=== PATIENT | female | born 1960 | race Two or more races ===

== ENCOUNTER → 2021-02-23 08:17 | Outpatient (BNVA) | payer OTHER, SELFPAY | PROVIDERS: PCP Internal Medicine; Visit Provider Student in an Organized Health Care Education/Training Program | DX: M79.672 Pain in left foot (principal); F17.200 Nicotine dependence, unspecified, uncomplicated; Z79.899 Other long term (current) drug therapy; Z71.6 Tobacco abuse counseling | CPT/HCPCS: 99212 ==

== ENCOUNTER 2021-07-05 07:55 | Outpatient (REF) | payer OTHER, SELFPAY ==
[2021-07-05 09:40] LABS: Alanine Aminotransferase 12 U/L (0-31); Albumin Level 4.1 g/dL (3.5-5.0); Alkaline Phosphatase 127 U/L (39-117); Anion Gap 14 (12-20); Aspartate Amino Transferase 14 U/L (5-31); Bilirubin Total 0.6 mg/dL (0.0-1.0); Blood Urea Nitrogen 25 mg/dL (9-16); Calcium 10.2 mg/dL (8.4-10.2); Carbon Dioxide 24 mmol/L (22-29); Chloride 106 mmol/L (96-108); Estimated Glomerular Filt Rate 51; Glucose Random 116 mg/dL (60-115); Potassium 4.5 mmol/L (3.3-5.1); Sodium 139 mmol/L (135-145); Total Protein 6.8 g/dL (6.5-8.0)
== END 2021-07-05 07:56 | disposition home or self-care (01) ==
LOC: HO.LAB 07:55
PROVIDERS: PCP Internal Medicine; Visit Provider Nurse Practitioner Family
DX: M79.672 Pain in left foot (principal)
CPT/HCPCS: 36415; 80053

== ENCOUNTER 2021-07-19 08:07 | Outpatient (REF) | payer OTHER, SELFPAY ==
--- NOTE | ~2021-07-19 | US_ITS ---
EXAMINATION: US ABDOMEN COMPLETE CLINICAL INFORMATION: Right upper quadrant pain, rule out cholecystitis. COMPARISON: Abdominal ultrasound 07/30/2017 TECHNIQUE: Real-time imaging of the abdominal viscera. Exam is limited due to pain and limited patient mobility. FINDINGS: PANCREAS: Normal. ABDOMINAL AORTA: The abdominal aorta is normal in caliber. INFERIOR VENA CAVA: Visualized portions are normal. LIVER: The liver is normal in size. The liver contour is normal. Parenchymal echogenicity is slightly increased. No focal hepatic lesion. There is no intrahepatic biliary duct dilatation seen. GALLBLADDER: Normal. The gallbladder is physiologically distended without evidence of stones, sludge, polyps, wall thickening or pericholecystic fluid. COMMON BILE DUCT: Normal in caliber measuring 0.4 cm in diameter. RIGHT KIDNEY: Normal. No hydronephrosis. No renal calculi or focal parenchymal lesions. The kidney measures 11.0 cm in maximum dimension. LEFT KIDNEY: Normal. No hydronephrosis. No renal calculi or focal parenchymal lesions. The kidney measures 10.4 cm in maximum dimension. SPLEEN: Normal. The spleen measures 8.9 cm in maximum dimension. FREE FLUID: None. US/US abdomen complete IMPRESSION: Limited exam. Slightly echogenic liver. Normal-appearing gallbladder.
[2021-07-19 08:58] LABS: MANUAL DIFF FLAG NO
[2021-07-19 09:23] LABS: Basophils Percent Auto 0.3 % (0-2); Eosinophils Absolute Auto 0.1 X10*3/uL (0.0-0.4); Eosinophils Percent Auto 0.8 % (0-4); Hematocrit 44.2 % (37-47); Hemoglobin 14.7 g/dl (12.0-16.0); Imm Gran Abs Auto 0.04 X10*3/uL (0.00-0.03); Imm Gran Pct Auto 0.4 % (0.0-0.4); Lymphocytes Absolute Auto 4.3 X10*3/uL (1.2-4.9); Lymphocytes Percent Auto 39.2 % (20-40); Mean Corpuscular HGB Conc 33.3 g/dl (31.0-35.0); Mean Corpuscular Volume 93.2 fL (80-98); Monocytes Absolute Auto 0.6 X10*3/uL (0.1-1.2); Monocytes Percent Auto 5.2 % (2-11); Neutrophils Absolute Auto 5.9 X10*3/uL (2.0-8.3); Neutrophils Percent Auto 54.1 % (45-73); Platelet Count 427 X10*3/uL (160-400); Red Blood Count 4.74 X10*6/uL (4.20-5.50); Red Cell Distribution Width 13.2 % (11.0-16.0); White Blood Count 10.8 X10*3/uL (4.8-10.8)
[2021-07-19 09:36] LABS: Estimated Average Glucose 120 mg/dL; Hemoglobin A1c % 5.8 %
[2021-07-19 09:48] LABS: Alanine Aminotransferase 10 U/L (0-31); Albumin Level 4.4 g/dL (3.5-5.0); Alkaline Phosphatase 136 U/L (39-117); Anion Gap 14 (12-20); Aspartate Amino Transferase 13 U/L (5-31); Bilirubin Total 0.5 mg/dL (0.0-1.0); Blood Urea Nitrogen 31 mg/dL (9-16); Calcium 9.3 mg/dL (8.4-10.2); Carbon Dioxide 24 mmol/L (22-29); Chloride 106 mmol/L (96-108); Cholesterol 262 mg/dL; Estimated Glomerular Filt Rate 46; Glucose Random 97 mg/dL (60-115); HDL Cholesterol 44 mg/dL; LDL Cholesterol Calculated 188 mg/dl; Potassium 4.7 mmol/L (3.3-5.1); Sodium 139 mmol/L (135-145); Total Protein 7.2 g/dL (6.5-8.0); Triglycerides 151 mg/dL
[2021-07-19 10:47] LABS: Creatinine Urine 168.51 mg/dL; Microalbum/Creatinine Ratio Ur 5.3 ug/mg cr
== END 2021-07-19 08:08 | disposition home or self-care (01) ==
LOC: HO.US 08:07
PROVIDERS: PCP Internal Medicine; Visit Provider Internal Medicine
DX: E11.9 Type 2 diabetes mellitus without complications (principal); E78.00 Pure hypercholesterolemia, unspecified; I10 Essential (primary) hypertension; R10.11 Right upper quadrant pain
CPT/HCPCS: 36415; 76700; 80053; 80061; 82043; 83036; 85025

== ENCOUNTER → 2022-02-23 07:56 | Outpatient (BNVA) | payer OTHER, SELFPAY | PROVIDERS: PCP Internal Medicine; Visit Provider Nurse Practitioner Family | DX: M25.562 Pain in left knee (principal); M47.816 Spondylosis without myelopathy or radiculopathy, lumbar region; M79.672 Pain in left foot; M79.7 Fibromyalgia | CPT/HCPCS: 99212 ==

== ENCOUNTER 2022-02-28 06:16 | Outpatient (REF) | payer OTHER, SELFPAY ==
--- NOTE | ~2022-02-28 | XR_ITS ---
EXAMINATION: XR LUMBOSACRAL SPINE CLINICAL INFORMATION: Low back pain COMPARISON: Previous x-rays most recent February 2015 TECHNIQUE: Three views of the lumbosacral spine. FINDINGS: There is transitional anatomy with 4 nonrib-bearing lumbar-type vertebral bodies and sacralization of L5. Bone alignment is normal. No fracture or dislocation is seen. Disc spaces are normal. There is degenerative spondylosis of the lower thoracic spine. There is lower lumbar spine facet arthritis. XR/XR lumbar spine 2-3V IMPRESSION: Transitional anatomy at the lumbar sacral junction. Lower lumbar spine facet arthritis.
--- NOTE | ~2022-02-28 | XR_ITS ---
EXAMINATION: XR FOOT, LEFT CLINICAL INFORMATION: Pain COMPARISON: None TECHNIQUE: AP, lateral, and oblique views of the left foot. FINDINGS: Bone alignment is normal. No fracture or dislocation is seen. Joint spaces are normal. There are calcaneal spurs. XR/XR foot LT 2V IMPRESSION: Calcaneal spurs otherwise unremarkable exam.
== END 2022-02-28 06:17 | disposition home or self-care (01) ==
LOC: HO.XRAY 06:16
PROVIDERS: PCP Internal Medicine; Visit Provider Nurse Practitioner Family
DX: M54.50 Low back pain, unspecified (principal); M79.672 Pain in left foot
CPT/HCPCS: 72100; 73620

== ENCOUNTER 2022-06-21 07:07 | Outpatient (REF) | payer OTHER, SELFPAY ==
[2022-06-21 07:23] LABS: MANUAL DIFF FLAG NO
[2022-06-21 07:39] LABS: Basophils Percent Auto 0.3 % (0-2); Eosinophils Absolute Auto 0.1 X10*3/uL (0.0-0.4); Eosinophils Percent Auto 1.5 % (0-4); Hematocrit 43.6 % (37.0-47.0); Hemoglobin 14.3 g/dl (12.0-16.0); Imm Gran Abs Auto 0.02 X10*3/uL (0.00-0.03); Imm Gran Pct Auto 0.2 % (0.0-0.4); Lymphocytes Absolute Auto 4.8 X10*3/uL (1.2-4.9); Lymphocytes Percent Auto 53.3 % (20-40); Mean Corpuscular HGB Conc 32.8 g/dl (31.0-35.0); Mean Corpuscular Hemoglobin 30.3 pg (27.0-33.0); Mean Corpuscular Volume 92.4 fL (80.0-98.0); Mean Platelet Volume 8.6 fL (9.4-12.3); Monocytes Absolute Auto 0.6 X10*3/uL (0.1-1.2); Monocytes Percent Auto 6.5 % (2-11); Neutrophils Absolute Auto 3.4 x10*3/uL (2.0-8.3); Neutrophils Percent Auto 38.2 % (45-73); Platelet Count 360 X10*3/uL (160-400); Red Blood Count 4.72 X10*6/uL (4.20-5.50); Red Cell Distribution Width 13.7 % (11.0-16.0); White Blood Count 8.9 X10*3/uL (4.8-10.8)
[2022-06-21 07:45] LABS: Estimated Average Glucose 117 mg/dL; Hemoglobin A1c % 5.7 %
[2022-06-21 08:02] LABS: Alanine Aminotransferase 11 U/L (0-31); Albumin Level 4.2 g/dL (3.5-5.0); Alkaline Phosphatase 114 U/L (39-117); Anion Gap 14 (12-20); Aspartate Amino Transferase 12 U/L (5-31); Bilirubin Total 0.6 mg/dL (0.0-1.0); Blood Urea Nitrogen 29 mg/dL (9-16); Calcium 9.6 mg/dL (8.4-10.2); Carbon Dioxide 23 mmol/L (22-29); Chloride 106 mmol/L (96-108); Cholesterol 287 mg/dL; Estimated Glomerular Filt Rate 47; Glucose Random 107 mg/dL (60-115); HDL Cholesterol 47 mg/dL; LDL Cholesterol Calculated 193 mg/dl; Potassium 4.4 mmol/L (3.3-5.1); Sodium 139 mmol/L (135-145); Total Protein 6.9 g/dL (6.5-8.0); Triglycerides 235 mg/dL
[2022-06-21 08:22] LABS: Thyroid Stimulating Hormone 1.81 uIU/mL (0.32-4.0)
[2022-06-21 08:27] LABS: Creatinine Urine 52.73 mg/dL; Microalbumin Urine < 5.0 mg/L
[2022-06-21 09:13] LABS: Vitamin B12 201 pg/mL (200-900)
== END 2022-06-21 07:08 | disposition home or self-care (01) ==
LOC: HO.LAB 07:07
PROVIDERS: PCP Internal Medicine; Visit Provider Internal Medicine
DX: Z00.01 Encounter for general adult medical examination with abnormal findings (principal); I10 Essential (primary) hypertension; E78.00 Pure hypercholesterolemia, unspecified; E11.9 Type 2 diabetes mellitus without complications
CPT/HCPCS: 36415; 80053; 80061; 82043; 82607; 83036; 84443; 85025

== ENCOUNTER → 2022-09-08 07:36 | Outpatient (BNVA) | payer OTHER, SELFPAY | PROVIDERS: PCP Internal Medicine; Visit Provider Nurse Practitioner Family | DX: M25.511 Pain in right shoulder (principal); M25.521 Pain in right elbow; M79.672 Pain in left foot; M47.816 Spondylosis without myelopathy or radiculopathy, lumbar region; M79.7 Fibromyalgia; M25.562 Pain in left knee | CPT/HCPCS: 99212 ==

== ENCOUNTER 2022-10-02 09:27 | Outpatient (REF) | payer OTHER, SELFPAY ==
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
--- NOTE | ~2022-10-02 | XR_ITS ---
EXAMINATION: XR ELBOW, RIGHT CLINICAL INFORMATION: Right elbow pain. COMPARISON: None TECHNIQUE: AP, lateral, and oblique views of the right elbow. FINDINGS: The bones and soft tissues are normal. No fracture or joint effusion. Alignment is anatomic. Joint spaces are maintained. XR/XR elbow RT 2V IMPRESSION: Unremarkable right elbow.
== END 2022-10-02 09:28 | disposition home or self-care (01) ==
LOC: HO.XRAY 09:27
PROVIDERS: PCP Internal Medicine; Visit Provider Nurse Practitioner Family
DX: M25.521 Pain in right elbow (principal); M25.511 Pain in right shoulder
CPT/HCPCS: 73030; 73070

== ENCOUNTER 2022-10-02 09:49 | Emergency (ER) | payer OTHER, SELFPAY ==
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
[2022-10-02 09:51] VITALS: BP 128/73; PULSE 72; RESP 18; TEMP 36.6; O2SAT 98; BMI 36.2
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
== END 2022-10-02 12:25 | disposition home or self-care (01) ==
PROVIDERS: Emergency Provider Student in an Organized Health Care Education/Training Program; PCP Internal Medicine
DX: Z04.1 Encounter for examination and observation following transport accident (principal); R51.9 Headache, unspecified; M25.512 Pain in left shoulder
CPT/HCPCS: 70450; 72125; 73030; 99282; 99284

== ENCOUNTER 2022-12-18 06:18 | Outpatient (REF) | payer OTHER, SELFPAY ==
[2022-12-18 08:01] LABS: Hematocrit 39.7 % (37.0-47.0); Hemoglobin 13.1 g/dl (12.0-16.0); Mean Corpuscular Volume 94.1 fL (80.0-98.0); Mean Platelet Volume 9.3 fL (9.4-12.3); Platelet Count 330 X10*3/uL (160-400); Red Blood Count 4.22 X10*6/uL (4.20-5.50); Red Cell Distribution Width 13.1 % (11.0-16.0)
[2022-12-18 08:30] LABS: Alanine Aminotransferase 13 U/L (0-31); Albumin Level 3.8 g/dL (3.5-5.0); Alkaline Phosphatase 96 U/L (39-117); Aspartate Amino Transferase 15 U/L (5-31); Bilirubin Direct 0.2 mg/dL (0.0-0.5); Bilirubin Total 0.5 mg/dL (0.0-1.0); Lipase 20 U/L (8-78)
== END 2022-12-18 06:19 | disposition home or self-care (01) ==
LOC: HO.LAB 06:18
PROVIDERS: PCP Internal Medicine; Visit Provider Internal Medicine Gastroenterology
DX: R10.11 Right upper quadrant pain (principal)
CPT/HCPCS: 36415; 80076; 83690; 85027

== ENCOUNTER 2022-12-22 07:57 | Outpatient (REF) | payer OTHER, SELFPAY ==
--- NOTE | ~2022-12-22 | US_ITS ---
EXAMINATION: US ABDOMEN COMPLETE CLINICAL INFORMATION: Right upper quadrant pain. COMPARISON: Ultrasound abdomen complete 07/19/2021 and 07/30/2017. TECHNIQUE: Real-time imaging of the abdominal viscera. FINDINGS: PANCREAS: Normal. ABDOMINAL AORTA: Atherosclerotic calcifications of the distal aorta. INFERIOR VENA CAVA: Visualized portions are normal. LIVER: The liver is normal in size. The liver contour is normal. Diffuse increased echogenicity of the liver parenchyma. No focal hepatic lesion. There is no intrahepatic biliary duct dilatation seen. GALLBLADDER: Normal. The gallbladder is physiologically distended without evidence of stones, sludge, polyps, wall thickening or pericholecystic fluid. COMMON BILE DUCT: Normal in caliber measuring 0.3 cm in diameter. RIGHT KIDNEY: Normal. No hydronephrosis. No renal calculi or focal parenchymal lesions. The kidney measures 11.4 cm in maximum dimension. LEFT KIDNEY: Normal. No hydronephrosis. No renal calculi or focal parenchymal lesions. The kidney measures 11.0 cm in maximum dimension. SPLEEN: Normal. The spleen measures 9.1 cm in maximum dimension. FREE FLUID: None. US/US abdomen complete IMPRESSION: 1. Diffuse increased echogenicity of the liver parenchyma likely reflects hepatic steatosis. 2. Atherosclerotic calcifications of the distal aorta.
== END 2022-12-22 07:58 | disposition home or self-care (01) ==
LOC: HO.US 07:57
PROVIDERS: PCP Internal Medicine; Visit Provider Internal Medicine Gastroenterology
DX: R10.11 Right upper quadrant pain (principal)
CPT/HCPCS: 76700

== ENCOUNTER 2023-05-02 07:59 | Outpatient (AMB) | payer OTHER, SELFPAY ==
[2023-05-02 08:05] VITALS: BP 112/74; PULSE 83; TEMP 36.3; O2SAT 99; BMI 35.1
--- NOTE | 2023-05-02 08:05 | MHC.OFFVIS ---
Intake Vital Signs 05/02/23 08:05 Height 5 ft 2 in Weight 191 lb 12.835 oz BMI 35.1 BP 112/74 Blood Pressure Location Lt brachial Position Sitting Pulse 83 Pulse Source Pulse Oximeter Temp 97.3 F Temp Source Skin Pulse Oximetry (%) 99 Intake Visit Reasons: fibromyalgia Air Sampling And Monitoring Required: Yes Air Sampling And Monitoring Language: Cleaner Assistant Name: Nena [id number] Information Interpreted: clinical only Accompanied by: Self / Same As Patient Allergies No Known Allergies Allergy (Verified 05/02/23 08:07) Medication List - Last Reconciled 05/02/23 by Bartolo Brock MD acetaminophen ER (Tylenol 8 Hour) 650 mg PO Q8H PRN albuterol sulfate 90 mcg/actuation (ProAir HFA) 2 puffs inhalation Q4-6H PRN amlodipine 10 mg PO DAILY ezetimibe (Zetia) 10 mg PO DAILY metformin ER 750 mg PO DAILY olmesartan (Benicar) 40 mg PO DAILY omeprazole 40 mg PO DAILY rosuvastatin (Crestor) 20 mg PO DAILY tramadol 100 mg (2 x 50 mg) PO BID PRN HPI HPI Comments History of Present Illness Details The patient returns today for evaluation of her fibromyalgia and osteoarthritis. We used the translating device to facilitate the visit. She had last seen [facility] in August. She complains still of many areas of pain including the right lumbar and buttock region. Those symptoms are worse with walking. She drags the left foot when she walks due to a footdrop that she says developed after she had a left total knee replacement. Apparently the left knee is still painful as well. She has intermittent pains in the left heel. She remains on 50 mg tramadol. She says she usually takes 1 a day but sometimes as many as 4. The Mass Pat review indicates she has used up 120 tablets in the last 3 months. She denies any sedation or side effects with taking the tramadol. PFSH Medical History Anemia Anxiety Arthritis Asthma Bipolar 1 disorder, depressed Carpal tunnel syndrome, bilateral Diabetes Elevated cholesterol Fibromyalgia GERD (gastroesophageal reflux disease) HTN (hypertension) Low back pain PONV (postoperative nausea and vomiting) PTSD (post-traumatic stress disorder) Scoliosis Smoker Surgical History H/O tubal ligation History of bladder surgery History of total left knee replacement Hx of reduction mammoplasty Family History Mother HTN (hypertension) High cholesterol Father Stomach cancer Sister Uterus cancer Social History Household Members: Significant Other Housing: Apartment Alcohol intake: current Alcohol intake frequency: does not drink Patient Tobacco Use Status: Current someday Tobacco user Tobacco use type: Cigarette Cigarettes Per Day: 1 Years Smoked: 15 Review of Systems Const Details: Limited stamina. Negative for appetite change, weight change, fever, chills, malaise Eyes Details: Negative for vision change, dry eyes,headaches and dizziness ENT Details: Negative for hearing change, tinnitus, oral ulcer, nose bleeds and oral dryness. Card Details: Negative chest pain, edema and syncope Resp Details: Negative for SOB, cough and wheezing GI Details: Negative indigestion/heartburn, nausea, abdominal pain, bowel changes, diarrhea, constipation and bloody stool. Details: Negative for dysuria, hematuria, nocturia, decreased force/flow and genital discharge Neuro Details: She drags left foot with walking. There is persistent numbness in the left foot as well. The occasional intermittent numbness in the right foot. Negative for epilepsy, palsy, stroke, changes in speech Psych Details: Negative for anxiety, depression and stress Endo Details: Negative for polyuria and polydypsia Nate/Lymph Details: Negative for excessive bruising or bleeding. Physical Exam Vital Signs: Last Vital Signs Temp 97.3 F 05/02/23 08:05 Pulse 83 05/02/23 08:05 BP 112/74 05/02/23 08:05 Pulse Ox 99 05/02/23 08:05 BMI result Body Mass Index 35.1 APPEARANCE: Patient in no acute distress EYES no redness, pupils equal and reactive to light, eyelids normal. No temporal artery tenderness, redness or swelling. EXTREMITIES: No edema, no calf tenderness, normal peripheral pulses. NEURO: Oriented and alert x3. She has a footdrop on the left. There is decreased sensation in the left plantar region and dorsum of the foot. Left ankle jerk is absent.ess. She drags her left foot when she walks. The SKIN: No inflammatory or neoplastic lesions. Normal color and turgor JOINT EXAM:.?? Cervical Spine:.? Mild pain with more than 10 degrees of lateral flexion or 15 degrees of rotation. Some paraspinal muscle tenderness. Thoracic Spine:.? No scoliosis.? No tenderness on palpation. Lumbar Spine:.? Alignment normal.? Mild pain with flexion at 45 degrees or attempts at hyperextension. There is some paraspinal muscle tenderness. Chest Wall:.? No tenderness, swelling, increased warmth or erythema. Hands:.? Normal pain-free range of motion without tenderness, swelling, increased warmth or erythema. Able to make a full fist and has a good roller structural mill strength. Wrists:.? Normal pain-free range of motion without tenderness, swelling, increased warmth or erythema. Elbows:. Normal pain-free range of motion without tenderness, swelling, increased warmth or erythema. Shoulders:.?? Full range of motion without pain. No tenderness, weakness, swelling, increased warmth or erythema. Hips:.? Right: There is buttock, lateral and groin pain with the extremes of abduction and 15 degrees or 10 degrees of internal rotation. Left: Full range of motion with some mild lumbar pain at the extremes of internal or external rotation. No groin pain with motion. Hip bursa: Right greater than left trochanteric tenderness. Knees:.??Right: Mild patellofemoral crepitus. There is mild pain with extremes of flexion or extension. There is mild medial tenderness with no redness, effusion, or warmth. Left: Knee replacement seems well healed although there is pain with flexion beyond 45 degrees. There may be some anterior instability but no effusion, redness or warmth. No popliteal swelling or tenderness.n Ankles:.? Right: Normal pain-free range of motion without tenderness, swelling, increased warmth or erythema. Left: There is no ability to flex at the ankle. There is clear foot drop evident with some decreased sensation in the dorsum in of the foot and the sole of the foot. No swelling or redness. Feet:.? Left: Normal pain-free range of motion without tenderness, swelling, increased warmth or erythema. Right: There is some mild tenderness in the MTP regions but no redness or swelling. Tender points:.? Mild tenderness to digital palpation at the occiput, trapezius, second rib, lateral epicondyle, knees, greater trochanter and gluteal area bilaterally. ? Results Reviewed Results Reviewed: [address] [address] XRay Report Signed Patient: Margie Renteria MR#: [id number] : 1960 Acct:[id number] Age/Sex: 61 / F ADM Date: 02/28/22 Loc: [facility] Attending Dr: Nga Adams NP Ordering Physician: Nga Adams NP Date of Service: 02/28/22 Procedure(s): XR lumbar spine 2-3V Accession Number(s): [id number] cc: Nga Adams NP~ EXAMINATION: XR LUMBOSACRAL SPINE CLINICAL INFORMATION: Low back pain COMPARISON: Previous x-rays most recent February 2015 TECHNIQUE: Three views of the lumbosacral spine. FINDINGS: There is transitional anatomy with 4 nonrib-bearing lumbar-type vertebral bodies and sacralization of L5. Bone alignment is normal. No fracture or dislocation is seen. Disc spaces are normal. There is degenerative spondylosis of the lower thoracic spine. There is lower lumbar spine facet arthritis. XR/XR lumbar spine 2-3V IMPRESSION: Transitional anatomy at the lumbar sacral junction. Lower lumbar spine facet arthritis. Dictated By: Velia Magana MD Assessment & Plan Assessment & Plan (1) Lumbar facet arthropathy: Code(s): M47.816 - Spondylosis without myelopathy or radiculopathy, lumbar region (2) Foot-drop: Comment: Left: Possibly after left total knee replacement Code(s): M21.379 - Foot drop, unspecified foot (3) Fibromyalgia: Code(s): M79.7 - Fibromyalgia (4) Medication monitoring encounter: Comment: tramadol pain contract updated 09/08/2022 Code(s): Z51.81 - Encounter for therapeutic drug level monitoring Plan There are many tender points so this likely is a case of underlying fibromyalgia. However she has documented lumbar osteoarthritis and much of her back pain now radiating down the leg is consistent with facet arthropathy and radicular pain. I will see if we could get her seen in pain management for their advice on this. She seems to get some benefit taking the tramadol and it does not seem to bother her so we will continue her prescriptions. I would presume the left footdrop is a complication of her knee replacement although there could have been some contribution of her lumbar disease in problem. We will aim for follow-up in 6 months but continue her tramadol as before. Review of the patient's record, her history, exam took 35 minutes. Orders: Orders XR hip RT min 2V Today M25.551 - Pain in right hip, M25.552 - Pain in left hip Referrals Pain Management Referral M47.816 - Spondylosis without myelopathy or radiculopathy, lumbar region Medications: Refilled tramadol 100 mg (2 x 50 mg) PO BID PRN 120 tabs 2RF pain M47.816 - Spondylosis without myelopathy or radiculopathy, lumbar region Coding Level of Care Code Est Pt Level 4 (78423) Diagnoses Lumbar facet arthropathy M47.816 Foot-drop M21.379 Fibromyalgia M79.7 Medication monitoring encounter Z51.81
== END 2023-05-02 08:44 | disposition home or self-care (01) ==
PROVIDERS: PCP Internal Medicine; Visit Provider Internal Medicine Rheumatology
DX: M47.816 Spondylosis without myelopathy or radiculopathy, lumbar region (principal); M21.379 Foot drop, unspecified foot; M79.7 Fibromyalgia; Z51.81 Encounter for therapeutic drug level monitoring
CPT/HCPCS: 99214

== ENCOUNTER → 2023-05-02 07:59 | Outpatient (BNVA) | payer OTHER, SELFPAY | PROVIDERS: PCP Internal Medicine; Visit Provider Internal Medicine Rheumatology | DX: M79.7 Fibromyalgia (principal); Z51.81 Encounter for therapeutic drug level monitoring; F11.20 Opioid dependence, uncomplicated; M47.816 Spondylosis without myelopathy or radiculopathy, lumbar region; M21.379 Foot drop, unspecified foot | CPT/HCPCS: 99212 ==

== ENCOUNTER 2023-06-21 08:32 | Outpatient (REF) | payer OTHER, SELFPAY ==
[2023-06-21 08:57] LABS: MANUAL DIFF FLAG NO
[2023-06-21 10:07] LABS: Basophils Percent Auto 0.3 % (0-2); Eosinophils Absolute Auto 0.1 X10*3/uL (0.0-0.4); Hematocrit 41.7 % (37.0-47.0); Hemoglobin 13.7 g/dl (12.0-16.0); Imm Gran Abs Auto 0.05 X10*3/uL (0.00-0.03); Imm Gran Pct Auto 0.5 % (0.0-0.4); Lymphocytes Absolute Auto 3.2 X10*3/uL (1.2-4.9); Lymphocytes Percent Auto 30.8 % (20-40); Mean Corpuscular HGB Conc 32.9 g/dl (31.0-35.0); Mean Corpuscular Volume 94.3 fL (80.0-98.0); Monocytes Absolute Auto 0.5 X10*3/uL (0.1-1.2); Monocytes Percent Auto 4.6 % (2-11); Neutrophils Absolute Auto 6.6 x10*3/uL (2.0-8.3); Neutrophils Percent Auto 62.8 % (45-73); Platelet Count 363 X10*3/uL (160-400); Red Blood Count 4.42 X10*6/uL (4.20-5.50); Red Cell Distribution Width 13.4 % (11.0-16.0); White Blood Count 10.5 X10*3/uL (4.8-10.8)
[2023-06-21 10:12] LABS: Estimated Average Glucose 105 mg/dL; Hemoglobin A1c % 5.3 % (<6.0)
[2023-06-21 11:12] LABS: Microalbum/Creatinine Ratio Ur 3.7 ug/mg cr (<30)
[2023-06-21 11:31] LABS: Alanine Aminotransferase 7 U/L (0-31); Albumin Level 4.1 g/dL (3.5-5.0); Alkaline Phosphatase 86 U/L (39-117); Anion Gap 14 (12-20); Aspartate Amino Transferase 11 U/L (5-31); Bilirubin Total 0.6 mg/dL (0.0-1.0); Blood Urea Nitrogen 19 mg/dL (9-16); Calcium 9.5 mg/dL (8.4-10.2); Carbon Dioxide 22 mmol/L (22-29); Chloride 110 mmol/L (96-108); Cholesterol 150 mg/dL (<200); Estimated Glomerular Filt Rate > 60; Glucose Random 100 mg/dL (60-115); HDL Cholesterol 52 mg/dL (>40); LDL Cholesterol Calculated 80 mg/dL (<100); Potassium 3.2 mmol/L (3.3-5.1); Sodium 143 mmol/L (135-145); Total Protein 6.8 g/dL (6.5-8.0); Triglycerides 92 mg/dL (<150)
== END 2023-06-21 08:33 | disposition home or self-care (01) ==
LOC: HO.LAB 08:32
PROVIDERS: PCP Internal Medicine; Visit Provider Internal Medicine
DX: Z00.00 Encounter for general adult medical examination without abnormal findings (principal); M79.7 Fibromyalgia; E11.9 Type 2 diabetes mellitus without complications; E78.00 Pure hypercholesterolemia, unspecified
CPT/HCPCS: 36415; 80053; 80061; 82043; 82570; 83036; 85025

== ENCOUNTER 2023-07-19 08:57 | Outpatient (REF) | payer OTHER, SELFPAY ==
--- NOTE | ~2023-07-19 | XR_ITS ---
EXAMINATION: XR HIP, RIGHT CLINICAL INFORMATION: Pain. COMPARISON: Radiographs dated 11/13/2014. TECHNIQUE: AP and frog-leg lateral views of the right hip. FINDINGS: Bony alignment and mineralization are normal. The right acetabular joint space is well-maintained. There is very mild peripheral osteophyte formation of the articular surfaces of the right hip. The right femoral head is smooth. There is no fracture or dislocation. No focal soft tissue swelling, gas or foreign body is seen. There are small pelvic phleboliths. XR/XR hip RT min 2V IMPRESSION: There is very mild osteoarthritic change of the right hip, similar to prior. No fracture or dislocation is seen.
== END 2023-07-19 08:58 | disposition home or self-care (01) ==
LOC: HO.XRAY 08:57
PROVIDERS: PCP Internal Medicine; Visit Provider Internal Medicine Rheumatology
DX: M25.551 Pain in right hip (principal)
CPT/HCPCS: 73502

== ENCOUNTER 2023-11-14 10:18 | Outpatient (AMB) | payer OTHER, SELFPAY ==
[2023-11-14 10:34] VITALS: BP 124/80; PULSE 74; TEMP 36.1; O2SAT 99; BMI 33.8
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
== END 2023-11-14 11:25 | disposition home or self-care (01) ==
PROVIDERS: PCP Internal Medicine; Visit Provider Nurse Practitioner Family
DX: M47.816 Spondylosis without myelopathy or radiculopathy, lumbar region (principal); M79.7 Fibromyalgia; Z51.81 Encounter for therapeutic drug level monitoring; R22.43 Localized swelling, mass and lump, lower limb, bilateral
CPT/HCPCS: 99214

== ENCOUNTER → 2023-11-14 10:18 | Outpatient (BNVA) | payer OTHER, SELFPAY | PROVIDERS: PCP Internal Medicine; Visit Provider Nurse Practitioner Family | DX: Z51.81 Encounter for therapeutic drug level monitoring (principal); F11.20 Opioid dependence, uncomplicated; M79.7 Fibromyalgia; M47.816 Spondylosis without myelopathy or radiculopathy, lumbar region; R22.43 Localized swelling, mass and lump, lower limb, bilateral | CPT/HCPCS: 99212 ==

== ENCOUNTER 2023-11-14 11:30 | Outpatient (REF) | payer OTHER, SELFPAY ==
[2023-11-14 13:06] LABS: MANUAL DIFF FLAG NO
[2023-11-14 13:09] LABS: Basophils Percent Auto 0.4 % (0-2); Eosinophils Absolute Auto 0.1 X10*3/uL (0.0-0.4); Eosinophils Percent Auto 0.8 % (0-4); Hematocrit 40.7 % (37.0-47.0); Hemoglobin 13.8 g/dl (12.0-16.0); Imm Gran Abs Auto 0.02 X10*3/uL (0.00-0.03); Imm Gran Pct Auto 0.3 % (0.0-0.4); Lymphocytes Absolute Auto 3.2 X10*3/uL (1.2-4.9); Lymphocytes Percent Auto 43.8 % (20-40); Mean Corpuscular HGB Conc 33.9 g/dl (31.0-35.0); Mean Corpuscular Hemoglobin 32.2 pg (27.0-33.0); Mean Corpuscular Volume 95.1 fL (80.0-98.0); Mean Platelet Volume 8.5 fL (9.4-12.3); Monocytes Absolute Auto 0.4 X10*3/uL (0.1-1.2); Monocytes Percent Auto 5.8 % (2-11); Neutrophils Absolute Auto 3.5 x10*3/uL (2.0-8.3); Neutrophils Percent Auto 48.9 % (45-73); Platelet Count 367 X10*3/uL (160-400); Red Blood Count 4.28 X10*6/uL (4.20-5.50); Red Cell Distribution Width 14.6 % (11.0-16.0); White Blood Count 7.2 X10*3/uL (4.8-10.8)
[2023-11-14 13:21] LABS: Alanine Aminotransferase 11 U/L (0-31); Albumin Level 4.1 g/dL (3.5-5.0); Alkaline Phosphatase 88 U/L (39-117); Anion Gap 11 (12-20); Aspartate Amino Transferase 13 U/L (5-31); Bilirubin Total 0.5 mg/dL (0.0-1.0); Blood Urea Nitrogen 19 mg/dL (9-16); C Reactive Protein < 0.10 mg/dL (< or = 0.50); Calcium 9.2 mg/dL (8.4-10.2); Carbon Dioxide 24 mmol/L (22-29); Chloride 112 mmol/L (96-108); Estimated Glomerular Filt Rate > 60; Glucose Random 110 mg/dL (60-115); Potassium 4.1 mmol/L (3.3-5.1); Sodium 143 mmol/L (135-145); Total Protein 6.8 g/dL (6.5-8.0)
[2023-11-14 13:49] LABS: Erythrocyte Sedimentation Rate 7 MM/HR (0-20)
[2023-11-15 14:58] LABS: IgA 198 mg/dL (70-320); IgG 818 mg/dL (600-1540); IgM 77 mg/dL (50-300)
== END 2023-11-14 11:31 | disposition home or self-care (01) ==
LOC: HO.10HDL 11:30
PROVIDERS: Visit Provider Nurse Practitioner Family
DX: R22.43 Localized swelling, mass and lump, lower limb, bilateral (principal); Z79.899 Other long term (current) drug therapy
CPT/HCPCS: 36415; 80053; 82784; 85025; 85652; 86140

== ENCOUNTER 2023-11-15 07:54 | Outpatient (REF) | payer OTHER, SELFPAY ==
--- NOTE | ~2023-11-15 | XR_ITS ---
EXAMINATION: XR FOOT, RIGHT CLINICAL INFORMATION: Localized swelling, mass and lump. COMPARISON: Right ankle radiographs dated 03/05/2015. TECHNIQUE: AP, lateral, and oblique views of the right foot. FINDINGS: Bony alignment and mineralization are normal. No fracture, dislocation or right ankle joint effusion is seen. Boehler's angle is normal. There is a small posterior calcaneal spur. There is a large bunionette of the fifth metatarsal head. There are moderate osteoarthritic changes of the proximal and distal interphalangeal joints of the right third toe. No focal erosion is seen. No focal soft tissue swelling, gas or foreign body is seen. XR/XR foot LT min 3V IMPRESSION: 1. No fracture, dislocation or right ankle joint effusion is seen. 2. A large bunionette is seen of the fifth metatarsal head. 3. There are moderate osteoarthritic changes of the proximal and distal interphalangeal joints of the right third toe. 4. There is a small posterior calcaneal spur. EXAMINATION: XR FOOT, LEFT CLINICAL INFORMATION: Localized swelling, mass and lump. COMPARISON: Left foot radiographs dated 02/28/2022. TECHNIQUE: AP, lateral, and oblique views of the left foot. FINDINGS: Bony alignment and mineralization are normal. No fracture, dislocation or left ankle joint effusion is seen. Boehler's angle is normal. There are small posterior and plantar calcaneal spurs. There is a large bunionette of the fifth metatarsal head. There is no abnormal bony erosive change. No focal soft tissue swelling, gas or foreign body is seen. IMPRESSION: 1. No fracture, dislocation or left ankle joint effusion is seen. 2. A large bunion is seen of the left fifth metatarsal head. 3. There are small calcaneal spurs.
--- NOTE | ~2023-11-15 | XR_ITS ---
EXAMINATION: XR FOOT, RIGHT CLINICAL INFORMATION: Localized swelling, mass and lump. COMPARISON: Right ankle radiographs dated 03/05/2015. TECHNIQUE: AP, lateral, and oblique views of the right foot. FINDINGS: Bony alignment and mineralization are normal. No fracture, dislocation or right ankle joint effusion is seen. Boehler's angle is normal. There is a small posterior calcaneal spur. There is a large bunionette of the fifth metatarsal head. There are moderate osteoarthritic changes of the proximal and distal interphalangeal joints of the right third toe. No focal erosion is seen. No focal soft tissue swelling, gas or foreign body is seen. XR/XR foot RT min 3V IMPRESSION: 1. No fracture, dislocation or right ankle joint effusion is seen. 2. A large bunionette is seen of the fifth metatarsal head. 3. There are moderate osteoarthritic changes of the proximal and distal interphalangeal joints of the right third toe. 4. There is a small posterior calcaneal spur. EXAMINATION: XR FOOT, LEFT CLINICAL INFORMATION: Localized swelling, mass and lump. COMPARISON: Left foot radiographs dated 02/28/2022. TECHNIQUE: AP, lateral, and oblique views of the left foot. FINDINGS: Bony alignment and mineralization are normal. No fracture, dislocation or left ankle joint effusion is seen. Boehler's angle is normal. There are small posterior and plantar calcaneal spurs. There is a large bunionette of the fifth metatarsal head. There is no abnormal bony erosive change. No focal soft tissue swelling, gas or foreign body is seen. IMPRESSION: 1. No fracture, dislocation or left ankle joint effusion is seen. 2. A large bunion is seen of the left fifth metatarsal head. 3. There are small calcaneal spurs.
== END 2023-11-15 07:55 | disposition home or self-care (01) ==
LOC: HO.XRAY 07:54
PROVIDERS: PCP Internal Medicine; Visit Provider Nurse Practitioner Family
DX: R22.43 Localized swelling, mass and lump, lower limb, bilateral (principal)
CPT/HCPCS: 73630

== ENCOUNTER → 2024-01-02 08:56 | Outpatient (BNVA) | payer OTHER, SELFPAY | PROVIDERS: PCP Internal Medicine; Visit Provider Nurse Practitioner Family ==

== ENCOUNTER 2024-01-09 09:21 | Outpatient (AMB) | payer OTHER, SELFPAY ==
--- NOTE | 2024-01-09 09:24 | MHC.OFFVIS ---
Intake Vital Signs 01/09/24 09:33 Height 5 ft 2 in Weight 185 lb 3.013 oz BMI 33.9 BP 110/64 Blood Pressure Location Rt brachial Position Sitting Pulse 88 Pulse Source Pulse Oximeter Pulse Oximetry (%) 98 Oxygen Delivery Method Room Air Intake Visit Reasons: OA/Heel Plantar swelling/CONFIRMED Intake Note: Patient presents to office today for OA and plantar swelling. Civil Drafting Technician Required: Yes Civil Drafting Technician Language: Latex Dipper Name: Daughter-refusal signed Information Interpreted: non-clinical & clinical Accompanied by: Self / Same As Patient Allergies No Known Allergies Allergy (Verified 01/09/24 09:33) HPI HPI Comments History of Present Illness Details Ms. Renteria 63yoDahiana returns today for evaluation of her fibromyalgia and osteoarthritis and plantar pain. She is here with her daughter who helps to translate. She complains still of many areas of pain but her main concern continues to be bilateral foot bottom. She does walk and drag her feet and it is painful with weight-bearing. The podiatry referral does not take her insurance so she needs another name. It was not helped by prednisone given at last visit. She remains on 50 mg tramadol. She says she usually takes 1 a day but sometimes as many as 4. She denies any sedation or side effects with taking the tramadol. 11/14/2023 Visit Kiah: Ms. Myra Henriquez returns today for evaluation of her fibromyalgia and osteoarthritis last seen May 2023. She is here with her daughter who helps to translate. She complains still of many areas of pain but her main concern today is bilateral foot bottom. Patient reports that this prevents her from lifting her feet to walk. Whenever she is weight-bearing it is very painful. Her left knee is fine today but the right continues to be painful she has to follow up with Orthopedics for the right. She remains on 50 mg tramadol. She says she usually takes 1 a day but sometimes as many as 4. At the last visit in May 2023, the Mass Pat review indicates she has used up 120 tablets in the last 3 months. She denies any sedation or side effects with taking the tramadol. May 2023 Visit The patient returns today for evaluation of her fibromyalgia and osteoarthritis. We used the translating device to facilitate the visit. She had last seen [facility] in August. She complains still of many areas of pain including the right lumbar and buttock region. Those symptoms are worse with walking. She drags the left foot when she walks due to a footdrop that she says developed after she had a left total knee replacement. Apparently the left knee is still painful as well. She has intermittent pains in the left heel. She remains on 50 mg tramadol. She says she usually takes 1 a day but sometimes as many as 4. The Mass Pat review indicates she has used up 120 tablets in the last 3 months. She denies any sedation or side effects with taking the tramadol. Neuro PE: She has a footdrop on the left. There is decreased sensation in the left plantar region and dorsum of the foot. Left ankle jerk is absent.ess. She drags her left foot when she walks. [facility] Medical History (Updated 11/14/23 @ 11:14 by CARMEL Sor[facility]LAURE[facility]) Localized swelling of both feet Arthritis Scoliosis Fibromyalgia Low back pain Smoker Carpal tunnel syndrome, bilateral Elevated cholesterol HTN (hypertension) Diabetes Asthma Anxiety PTSD (post-traumatic stress disorder) Bipolar 1 disorder, depressed Anemia GERD (gastroesophageal reflux disease) PONV (postoperative nausea and vomiting) Surgical History History of total left knee replacement Hx of reduction mammoplasty History of bladder surgery H/O tubal ligation Family History Mother HTN (hypertension) High cholesterol Father Stomach cancer Sister Uterus cancer Social History Household Members: Significant Other Housing: Apartment Alcohol intake: current Alcohol intake frequency: does not drink Patient Tobacco Use Status: Current someday Tobacco user Tobacco use type: Cigarette Cigarettes Per Day: 1 Years Smoked: 15 Review of Systems Const All systems reviewed & are unremarkable except as noted in HPI and below Physical Exam Vital Signs: Last Vital Signs Pulse 88 01/09/24 09:33 BP 110/64 01/09/24 09:33 Pulse Ox 98 01/09/24 09:33 Oxygen Delivery Method Room Air 01/09/24 09:33 BMI result Body Mass Index 33.9 Vital signs reviewed. Constitutional: Non-toxic appearing. No acute distress. Well-developed and well-nourished. HEENT: Normocephalic and atraumatic. External auditory canals without erythema or edema bilaterally. Skin: Warm and dry. No rashes or lesions noted. Neck: Full and painless range of motion. No cervical lymphadenopathy. Cardio: Regular rate and rhythm. No murmurs, gallops, or rubs. No lower extremity edema. No JVD. Pulmonary: No respiratory distress. No accessory muscle usage. Musculoskeletal: Normal range of motion in joints throughout the body. No deformity or other signs of injury. Antalgic gait due to pain in plantar, tenderness and boginess to palpation. Xrays show small heal spurs Neuro: Alert and oriented x4. Cranial nerves 2-12 grossly intact. No focal deficits appreciated. Results Reviewed Results Reviewed: Ordering Physician: Kelly Dupont Date of Service: 11/15/23 Procedure(s): XR foot RT min 3V Accession Number(s): [id number] cc: Berenice Zaragoza MD; Kelly Dupont~ EXAMINATION: XR FOOT, RIGHT CLINICAL INFORMATION: Localized swelling, mass and lump. COMPARISON: Right ankle radiographs dated 03/05/2015. TECHNIQUE: AP, lateral, and oblique views of the right foot. FINDINGS: Bony alignment and mineralization are normal. No fracture, dislocation or right ankle joint effusion is seen. Boehler's angle is normal. There is a small posterior calcaneal spur. There is a large bunionette of the fifth metatarsal head. There are moderate osteoarthritic changes of the proximal and distal interphalangeal joints of the right third toe. No focal erosion is seen. No focal soft tissue swelling, gas or foreign body is seen. XR/XR foot RT min 3V IMPRESSION: 1. No fracture, dislocation or right ankle joint effusion is seen. 2. A large bunionette is seen of the fifth metatarsal head. 3. There are moderate osteoarthritic changes of the proximal and distal interphalangeal joints of the right third toe. 4. There is a small posterior calcaneal spur. EXAMINATION: XR FOOT, LEFT CLINICAL INFORMATION: Localized swelling, mass and lump. COMPARISON: Left foot radiographs dated 02/28/2022. TECHNIQUE: AP, lateral, and oblique views of the left foot. FINDINGS: Bony alignment and mineralization are normal. No fracture, dislocation or left ankle joint effusion is seen. Boehler's angle is normal. There are small posterior and plantar calcaneal spurs. There is a large bunionette of the fifth metatarsal head. There is no abnormal bony erosive change. No focal soft tissue swelling, gas or foreign body is seen. IMPRESSION: 1. No fracture, dislocation or left ankle joint effusion is seen. 2. A large bunion is seen of the left fifth metatarsal head. 3. There are small calcaneal spurs. Laboratory Tests 11/14/23 11:35 WBC 7.2 RBC 4.28 Hgb 13.8 Hct 40.7 ESR 7 AST 13 ALT 11 C-Reactive Protein < 0.10 Total Protein 6.8 Albumin 4.1 IgG Total 818 IgA Total 198 IgM 77 Assessment & Plan Assessment & Plan (1) Lumbar facet arthropathy: Code(s): M47.816 - Spondylosis without myelopathy or radiculopathy, lumbar region (2) Fibromyalgia: Code(s): M79.7 - Fibromyalgia (3) Medication monitoring encounter: Comment: tramadol pain contract updated 09/08/2022 Code(s): Z51.81 - Encounter for therapeutic drug level monitoring (4) Localized swelling of both feet: Code(s): R22.43 - Localized swelling, mass and lump, lower limb, bilateral Plan #Localized Swelling to heel soles: Due to insurance not accepted, she did not get to see the referred Vault Worker since last visit. We will give the name of a irrigation flume layer. [facility] shows calcaneal spurs. This could be the source of the Pain. She had no relieve from prednisone or any other medication such as tylenol, Ibuprofen or Tramadol. Perhaps steroid injections may help from the irrigation flume layer. #Lumbar Pain/Fibromyalgia: There are many tender points so this likely is a case of underlying fibromyalgia. However she has documented lumbar osteoarthritis and much of her back pain now radiating down the leg is consistent with facet arthropathy and radicular pain. I will see if we could get her seen in pain management for their advice on this. She gets some benefit taking the tramadol and it does not seem to bother her so we will continue her prescriptions. Review of the patient's record, discussions and documentation took 20 minutes. f/u 6 months Orders: Orders Erythrocyte Sedimentation Rate Today M79.7 - Fibromyalgia, R22.43 - Localized swelling, mass and lump, lower limb, bilateral, Z51.81 - Encounter for therapeutic drug level monitoring C Reactive Protein Today M79.7 - Fibromyalgia, R22.43 - Localized swelling, mass and lump, lower limb, bilateral, Z51.81 - Encounter for therapeutic drug level monitoring Comprehensive Met. Panel Today M79.7 - Fibromyalgia, R22.43 - Localized swelling, mass and lump, lower limb, bilateral, Z51.81 - Encounter for therapeutic drug level monitoring Coding Level of Care Code Est Pt Level 3 (63036) Diagnoses Lumbar facet arthropathy M47.816 Fibromyalgia M79.7 Medication monitoring encounter Z51.81 Localized swelling of both feet R22.43
[2024-01-09 09:33] VITALS: BP 110/64; PULSE 88; O2SAT 98; BMI 33.9
== END 2024-01-09 09:52 | disposition home or self-care (01) ==
PROVIDERS: PCP Internal Medicine; Visit Provider Nurse Practitioner Family
DX: M47.816 Spondylosis without myelopathy or radiculopathy, lumbar region (principal); M79.7 Fibromyalgia; Z51.81 Encounter for therapeutic drug level monitoring; R22.43 Localized swelling, mass and lump, lower limb, bilateral
CPT/HCPCS: 99213

== ENCOUNTER → 2024-01-09 09:21 | Outpatient (BNVA) | payer OTHER, SELFPAY | PROVIDERS: PCP Internal Medicine; Visit Provider Nurse Practitioner Family | DX: R22.43 Localized swelling, mass and lump, lower limb, bilateral (principal); M21.372 Foot drop, left foot; M47.816 Spondylosis without myelopathy or radiculopathy, lumbar region; M79.7 Fibromyalgia; Z51.81 Encounter for therapeutic drug level monitoring | CPT/HCPCS: 99212 ==

== ENCOUNTER 2024-07-15 08:12 | Outpatient (AMB) | payer OTHER, SELFPAY ==
[2024-07-15 08:31] VITALS: BP 112/62; PULSE 72; O2SAT 99; BMI 33.1
--- NOTE | 2024-07-15 08:31 | A.OFFVIS_ITS ---
Vital Signs 07/15/24 08:31 Height 5 ft 2 in Weight 181 lb BMI 33.1 BP 112/62 Blood Pressure Location Lt brachial Position Sitting Pulse 72 Pulse Source Pulse Oximeter Pulse Oximetry (%) 99 Oxygen Delivery Method Room Air Intake Visit Reasons: FM/OA/CM Intake Note: Patient is here for follow up on fibromyalgia and osteoarthritis. She was last seen in the office on 01/09/24 by Kelly Dupont. She would like refill of Tramadol today. Electrical Engineering Professor Required: Yes Electrical Engineering Professor Services: Electrical Engineering Professor Offered & Declined Electrical Engineering Professor Name: Kota javier Information Interpreted: non-clinical & clinical Accompanied by: Son Allergies No Known Allergies Allergy (Verified 07/15/24 09:32) Medication List - Last Reconciled 07/15/24 by Tamara Modi MD acetaminophen ER (Tylenol 8 Hour) 650 mg PO Q8H PRN albuterol sulfate 90 mcg/actuation (ProAir HFA) 2 puffs inhalation Q4-6H PRN amlodipine 10 mg PO DAILY ezetimibe (Zetia) 10 mg PO DAILY metformin ER 750 mg PO DAILY olmesartan (Benicar) 40 mg PO DAILY omeprazole 40 mg PO DAILY rosuvastatin (Crestor) 20 mg PO DAILY tramadol 100 mg (2 x 50 mg) PO BID PRN 90 days HPI Comments Details: Patient is a 64-year-old female with hypertension, hyperlipidemia, diabetes who presents for follow-up for fibromyalgia and osteoarthritis. Interval History: Patient last seen 01/09/2024 with Kelly Dupont. She continued to complain of multiple areas of plain specifically her bilateral foot bottom. She was given a trial of prednisone however this did not improve her pain. Today patient is overall stable but with complaints of for her left knee (this is status post knee replacement) and bilateral plantar pain. The plantar pain is aggravated by walking. Rheumatologic History: Patient was 1st seen 02/23/2021. At that time evaluation revealed fibromyalgia and osteoarthritis. Gabapentin - tried in the past but gave her dizziness so she stopped it Current Rheumatology Medication(s): Tramadol 100mg po bid prn PFSH Medical History (Updated 07/15/24 @ 09:47 by Tamara Modi MD) Plantar fasciitis, bilateral Localized swelling of both feet Arthritis Scoliosis Fibromyalgia Low back pain Smoker Carpal tunnel syndrome, bilateral Elevated cholesterol HTN (hypertension) Diabetes Asthma Anxiety PTSD (post-traumatic stress disorder) Bipolar 1 disorder, depressed Anemia GERD (gastroesophageal reflux disease) PONV (postoperative nausea and vomiting) Surgical History History of total left knee replacement Hx of reduction mammoplasty History of bladder surgery H/O tubal ligation Family History Mother HTN (hypertension) High cholesterol Father Stomach cancer Sister Uterus cancer Social History (Updated 01/09/24 @ 10:16 by DARWIN Travis) Household Members: Significant Other Housing: Apartment Alcohol intake: current Alcohol intake frequency: holidays/special occasions only Patient Tobacco Use Status: Current someday Tobacco user Tobacco use type: Cigarette Cigarettes Per Day: 1 Years Smoked: 15 Substance Use Type: Marijuana Review of Systems Const Details: Review of Systems Constitutional: Denies fever, chills, weight loss ENT: Denies vision changes, eye pain or eye redness, dental caries, dry mouth GI: Denies nausea, vomiting, diarrhea, abdominal pain, change in BM Pulm: Denies SOB, HEWITT, hemoptysis, wheezing Cards: Denies chest pain, palpitations Skin: Denies Raynaud's, rash, nail changes, photosensitivity, REPTILE FARMER: Denies headaches, weakness, paresthesias, recurrent falls MSK: as per HPI All other systems reviewed and are unremarkable except noted above Physical Exam Vital Signs: Last Vital Signs Pulse 72 07/15/24 08:31 BP 112/62 07/15/24 08:31 Pulse Ox 99 07/15/24 08:31 Oxygen Delivery Method Room Air 07/15/24 08:31 BMI result Body Mass Index 33.1 Const Other: Physical Examination Patient well appearing and in no apparent painful distress Constitutional Mucous membranes pink and moist patient alert and cooperative HEENT Conjunctiva and sclera clear. ?Pupils equal round and reactive to light. ?No lymphadenopathy. ?Normal dentition. Respiratory System Normal respiratory effort and able to speak in complete sentences. ?Clear to auscultation bilaterally. ?No crackles, rales, rhonchi, wheezes heard. Cardiac System Regular rate and rhythm. ?S1 and S2 heard no murmurs. ?Radial pulses intact bilaterally MSK Bilateral hands with Heberden's nodes to the PIPs. Able to make a fist. No tenderness to palpation of the MCPs, PIPs DIPs, or DIPs. Full range of motion of wrist, elbow and passive/active ROM of shoulders. No knee effusions noted. Bilateral tenderness to palpation of the plantar fascia insertion. Office Procedures Joint Injection/Aspiration Joint Injection/Aspiration Details: Procedure was explained to the patient and consent was obtained. ? The area of interest was identified and confirmed with patient. ?This was subsequently cleaned with chlorhexidine x3. ? The area was then anesthetized using ethyl chloride spray and 1cc 1% lidocaine 40 mg Kenalog with 1 cc 1% lidocaine was injected without issue. ?Minimal to no bleeding. ?Patient tolerated procedure. Primary Site: other (left plantar fascia) Prep: site was prepped using aseptic technique Injected: 40 mg of, Kenalog, with 1 mL of and 1% plain lidocaine Approach Used: other (medial approach) Procedure: The patient tolerated the procedure well Coding 13778 - Bicipital Groove Injection (Left Plantar fascia) Procedure code (CPT) selection complete Joint Injection/Aspiration Joint Injection/Aspiration Details: Procedure was explained to the patient and consent was obtained. ? The area of interest was identified and confirmed with patient. ?This was subsequently cleaned with chlorhexidine x3. ? The area was then anesthetized using ethyl chloride spray and 1cc 1% lidocaine 40 mg Kenalog with 1 cc 1% lidocaine was injected without issue. ?Minimal to no bleeding. ?Patient tolerated procedure. Primary Site: other (Right plantar fascia) Prep: site was prepped using aseptic technique Injected: 40 mg of, Kenalog, with 1 mL of and 1% plain lidocaine Approach Used: other (medial approach) Procedure: The patient tolerated the procedure well Coding 42465 - Bicipital Groove Injection (Right plantar fascia) Procedure code (CPT) selection complete Results Reviewed Results Reviewed: XR Bilateral feet 11/15/23 FINDINGS: Bony alignment and mineralization are normal. No fracture, dislocation or right ankle joint effusion is seen. Boehler's angle is normal. There is a small posterior calcaneal spur. There is a large bunionette of the fifth metatarsal head. There are moderate osteoarthritic changes of the proximal and distal interphalangeal joints of the right third toe. No focal erosion is seen. No focal soft tissue swelling, gas or foreign body is seen. Assessment & Plan Assessment & Plan (1) Plantar fasciitis, bilateral: Comment: Plantar fascial steroid injection 07/15/24 Code(s): M72.2 - Plantar fascial fibromatosis Category: Medical Plan: #Bilateral Plantar fasciitis Patient with bilateral plantar fasciitis as evidenced on examination. X-rays show heel spur. Status post bilateral injection of steroids today. (2) Fibromyalgia: Code(s): M79.7 - Fibromyalgia Category: Medical Plan: #Fibromyalgia Patient fibromyalgia stable today. Unable to tolerate gabapentin. If symptoms get worse can consider pregabalin in the future maybe. (3) Medication monitoring encounter: Comment: tramadol pain contract updated 09/08/2022 Code(s): Z51.81 - Encounter for therapeutic drug level monitoring Category: Medical Plan: #Tramadol Current Use Reviewed mass pat Tramadol reordered Plan I spent 20 minutes reviewing the record and labs, seeing the patient, discussing the treatment plan and documenting in the medical record ? For next visit: * Review effectiveness of injection * Consider pregabalin for fibromyalgia and neuropathic symptoms. Orders: Orders AMB Joint Injection/Aspiration Today M72.2 - Plantar fascial fibromatosis, M79.7 - Fibromyalgia AMB Joint Injection/Aspiration Today M72.2 - Plantar fascial fibromatosis, M79.7 - Fibromyalgia Medications: Changed From tramadol 100 mg (2 x 50 mg) PO BID PRN 120 tabs 2RF pain M47.816 - Spondylosis without myelopathy or radiculopathy, lumbar region To tramadol 100 mg (2 x 50 mg) PO BID 90 days PRN 120 tabs 2RF pain M47.816 - Spondylosis without myelopathy or radiculopathy, lumbar region Coding Level of Care Code Est Pt Level 3 (35660) Diagnoses Plantar fasciitis, bilateral M72.2 Fibromyalgia M79.7 Medication monitoring encounter Z51.81 CPT Codes Coding - Joint 1: 63303 - Bicipital Groove Injection ([id number]) Coding - Joint 1: 22608 - Bicipital Groove Injection ([id number])
== END 2024-07-15 09:27 | disposition home or self-care (01) ==
PROVIDERS: PCP Internal Medicine; Visit Provider Student in an Organized Health Care Education/Training Program
DX: M72.2 Plantar fascial fibromatosis (principal); M79.7 Fibromyalgia; Z51.81 Encounter for therapeutic drug level monitoring
CPT/HCPCS: 20550; 99214

== ENCOUNTER → 2024-07-15 08:12 | Outpatient (BNVA) | payer OTHER, SELFPAY | PROVIDERS: PCP Internal Medicine; Visit Provider Student in an Organized Health Care Education/Training Program | DX: M79.7 Fibromyalgia (principal); M72.2 Plantar fascial fibromatosis; M47.816 Spondylosis without myelopathy or radiculopathy, lumbar region; Z51.81 Encounter for therapeutic drug level monitoring; Z79.891 Long term (current) use of opiate analgesic | CPT/HCPCS: 20550; 99212 ==

== ENCOUNTER 2024-10-01 07:02 | Outpatient (REF) | payer OTHER, SELFPAY ==
[2024-10-01 07:14] LABS: MANUAL DIFF FLAG NO
[2024-10-01 07:31] LABS: Basophils Percent Auto 0.4 % (0-2); Eosinophils Absolute Auto 0.1 X10*3/uL (0.0-0.4); Eosinophils Percent Auto 1.3 % (0-4); Hematocrit 39.3 % (37.0-47.0); Hemoglobin 13.1 g/dl (12.0-16.0); Imm Gran Abs Auto 0.03 X10*3/uL (0.00-0.03); Imm Gran Pct Auto 0.4 % (0.0-0.4); Lymphocytes Absolute Auto 3.7 X10*3/uL (1.2-4.9); Lymphocytes Percent Auto 47.7 % (20-40); Mean Corpuscular HGB Conc 33.3 g/dl (31.0-35.0); Mean Corpuscular Hemoglobin 33.1 pg (27.0-33.0); Mean Corpuscular Volume 99.2 fL (80.0-98.0); Mean Platelet Volume 8.3 fL (9.4-12.3); Monocytes Absolute Auto 0.6 X10*3/uL (0.1-1.2); Monocytes Percent Auto 7.2 % (2-11); Neutrophils Absolute Auto 3.3 x10*3/uL (2.0-8.3); Platelet Count 339 X10*3/uL (160-400); Red Blood Count 3.96 X10*6/uL (4.20-5.50); Red Cell Distribution Width 14.3 % (11.0-16.0); White Blood Count 7.8 X10*3/uL (4.8-10.8)
[2024-10-01 07:39] LABS: Estimated Average Glucose 103 mg/dL; Hemoglobin A1c % 5.2 % (<6.0); Total Hemoglobin (HGBA1C) 3421.1536 umol/L
[2024-10-01 08:01] LABS: Alanine Aminotransferase 23 U/L (0-31); Albumin Level 3.7 g/dL (3.5-5.0); Anion Gap 8 (12-20); Aspartate Amino Transferase 21 U/L (5-31); Bilirubin Total 0.4 mg/dL (0.0-1.0); Blood Urea Nitrogen 22 mg/dL (9-16); Calcium 8.8 mg/dL (8.4-10.2); Carbon Dioxide 26 mmol/L (22-29); Chloride 114 mmol/L (96-108); Cholesterol 234 mg/dL (<200); Estimated Glomerular Filt Rate > 60; Glucose Random 105 mg/dL (60-115); HDL Cholesterol 60 mg/dL (>40); LDL Cholesterol Calculated 149 mg/dL (<100); Potassium 4.3 mmol/L (3.3-5.1); Sodium 144 mmol/L (135-145); Total Protein 6.3 g/dL (6.5-8.0); Triglycerides 125 mg/dL (<150)
[2024-10-01 08:10] LABS: Alkaline Phosphatase 95 U/L (39-117); Thyroid Stimulating Hormone 2.46 uIU/mL (0.32-4.0)
[2024-10-01 08:25] LABS: Creatinine Urine 125.78 mg/dL; Microalbum/Creatinine Ratio Ur 6.3 ug/mg cr (<30)
== END 2024-10-01 07:03 | disposition home or self-care (01) ==
LOC: HO.LAB 07:02
PROVIDERS: PCP Internal Medicine; Visit Provider Internal Medicine
DX: E11.9 Type 2 diabetes mellitus without complications (principal); E78.00 Pure hypercholesterolemia, unspecified; F32.2 Major depressive disorder, single episode, severe without psychotic features; G54.8 Other nerve root and plexus disorders; H26.9 Unspecified cataract
CPT/HCPCS: 36415; 80053; 80061; 82043; 82570; 83036; 84443; 85025

== ENCOUNTER 2024-12-02 09:21 | Outpatient (REF) | payer OTHER, SELFPAY ==
--- OUTSIDE RECORDS SUMMARY | 2024-12-02 10:25 | XMS_ITS | Patient Health Record ---
Author Organization [facility] Address [address] [place] [address] Care Team Providers Care Concrete Stone Finisher Name Role Phone Nik Berenice Primary Care Provider UnavailRalf Mckeon Jr Unavailable Allergies No Known Allergies Reason For Referral No Information Medications Medication SIG (Take, Route, Frequency, Duration) Notes Start Date End Date Status Repatha 140 MG/ML Subcutaneous for 28 Active Colyte with Flavor Packs 240 GM As directed Orally Over the specified time. for 1 day(s) 05/28/2019 Active ProAir HFA 108 (90 Base) MCG/ACT 2 puffs as needed Inhalation every 6 hrs/prn Activ e Zetia 10 MG 1 tablet Orally Once a day Active amLODIPine Besylate 10 MG 1 tablet Orally Once a day Active Simethicone 80 MG 1 tablet after meals and at bedtime as needed Orally Four times a day for 30 days 11/20/2022 Active Omeprazole 20 MG TOME ANGELA CAPSULA DOS VECES AL JEAN-PAUL for 90 Active Benicar 40 MG 1 tablet Orally Once a day Active metFORMIN HCl ER 750 MG 1 tablet with ev ening meal Orally twice a day Active traMADol HCl 50 MG 1 tablet as needed O rally Once a day Active Crestor 20 MG 1 tablet Orally Once a day Active Immunizations Vaccine Route Administration Date Status Comme nts Influenza Unknown 05/28/2019 Refused Influenza Unknown 11/20/2022 Refused Problems Problem Type SNOMED Code ICD Code Onset Dates Problem Status W/U Status Risk Notes Problem 873193848 Colon cancer screening (Z12.11) Active confirmed Problem 40477970 Abdominal pain, epigastric (R10.13) Active confirmed Problem 172783949 Gastroesophageal reflux disease without esophagitis (K21.9) Active confirmed Problem 369315609 RUQ pain (R10.11) Active confirmed Problem 197310589 Gastroesophageal reflux disease, unspecified whether esophagitis present (K21.9) Active confirmed Plan Of Treatment Pending Test Test Name Order Date LIVER PROFILE 11/20/2022 LIPASE 11/20/2022 CBC w/o DIFF 11/20/2022 XR GI SERIES 09/13/2011 US ABD 11/20/2022 Future Test Test Name Order Date UPPER GI ENDOSCOPY 12/16/2014 UPPER GI ENDOSCOPY 07/11/2017 COLONOSCOPY 05/28/2019 Insurance Providers Payer Name Payer Address Payer Phone Subscriber Number Group Number Insured Name Patient Relationship to Insured Coverage Start Date Coverage End Date [facility] [employer] [address] [place] [address] [id number] KELLY ZIMMERMAN Self - patient is the insured MEDICAID OF [facility] [address] [place] [address] [id number] KELLY ZIMMERMAN Self - patient is the insured Medical (General) History Medical History History ICD Code colonoscopy 08/12, ten-year followup Iron deficiency anemia asthma elevated cholesterol hypertension obstructive sleep apnea fibromyalgia diabetes mellitus EGD 09/28/17, GERD Surgical History Surgery Date(Month/Year) reduction mammoplasty 02/06/2011 left knee replacement
[2024-12-02 11:11] LABS: Estimated Average Glucose 114 mg/dL; Hemoglobin A1C 129.1584 umol/L; Hemoglobin A1c % 5.6 % (<6.0)
[2024-12-02 11:55] LABS: Alanine Aminotransferase 21 U/L (0-31); Albumin Level 4.2 g/dL (3.5-5.0); Alkaline Phosphatase 105 U/L (39-117); Anion Gap 10 (12-20); Aspartate Amino Transferase 19 U/L (5-31); Bilirubin Total 0.5 mg/dL (0.0-1.0); Blood Urea Nitrogen 23 mg/dL (9-16); Calcium 9.2 mg/dL (8.4-10.2); Carbon Dioxide 25 mmol/L (22-29); Chloride 112 mmol/L (96-108); Cholesterol 161 mg/dL (<200); Estimated Glomerular Filt Rate 57; Glucose Random 103 mg/dL (60-115); HDL Cholesterol 66 mg/dL (>40); LDL Cholesterol Calculated 80 mg/dL (<100); Potassium 3.9 mmol/L (3.3-5.1); Sodium 143 mmol/L (135-145); Total Protein 7.3 g/dL (6.5-8.0); Triglycerides 78 mg/dL (<150)
[2024-12-05 17:13] LABS: TS Negative Control Passed; TS Panel A 0; TS Panel B 0; TS Positive Control Passed; TSpotTB Negative (Negative)
== END 2024-12-02 09:22 | disposition home or self-care (01) ==
LOC: HO.LAB 09:21
PROVIDERS: PCP Internal Medicine; Visit Provider Internal Medicine
DX: E11.9 Type 2 diabetes mellitus without complications (principal); E78.00 Pure hypercholesterolemia, unspecified; I10 Essential (primary) hypertension
CPT/HCPCS: 36415; 80053; 80061; 83036; 86481

== ENCOUNTER 2024-12-23 07:44 | Outpatient (AMB) | payer OTHER, SELFPAY ==
--- NOTE | 2024-12-17 11:34 | A.OFFVIS_ITS ---
Intake Visit Reasons: FM/OA/CM Allergies No Known Allergies Allergy (Verified 07/15/24 09:32) [facility] Medical History (Updated 07/15/24 @ 09:47 by Tamara Modi MD) Plantar fasciitis, bilateral Localized swelling of both feet Arthritis Scoliosis Fibromyalgia Low back pain Smoker Carpal tunnel syndrome, bilateral Elevated cholesterol HTN (hypertension) Diabetes Asthma Anxiety PTSD (post-traumatic stress disorder) Bipolar 1 disorder, depressed Anemia GERD (gastroesophageal reflux disease) PONV (postoperative nausea and vomiting) Surgical History History of total left knee replacement Hx of reduction mammoplasty History of bladder surgery H/O tubal ligation Family History Mother HTN (hypertension) High cholesterol Father Stomach cancer Sister Uterus cancer Social History (Updated 01/09/24 @ 10:16 by DARWIN Travis) Household Members: Significant Other Housing: Apartment Alcohol intake: current Alcohol intake frequency: holidays/special occasions only Patient Tobacco Use Status: Current someday Tobacco user Tobacco use type: Cigarette Cigarettes Per Day: 1 Years Smoked: 15 Substance Use Type: Marijuana Coding
--- OUTSIDE RECORDS SUMMARY | 2024-12-23 07:48 | XMS_ITS | Patient Health Record ---
Author Organization [facility] Address [address] [place] [address] Care Team Providers Care Palliative Care Nurse Name Role Phone Nik Berenice Primary Care Provider UnavailRalf Mckeon Jr Unavailable [phone] Allergies No Known Allergies Reason For Referral [...] Problem Status W/U Status Risk Notes Problem [id number] Colon cancer screening (Z12.11) Active confirmed Problem 07716960 Abdominal pain, epigastric (R10.13) Active confirmed Problem 923337500 Gastroesophageal reflux disease without esophagitis (K21.9) Active confirmed Problem 737348231 RUQ pain (R10.11) Active confirmed Problem 791024712 Gastroesophageal reflux disease, unspecified whether esophagitis present [...] Insured Coverage Start Date Coverage End Date [facility] [email or web address] [address] [place] [address] [id number] KELLY ZIMMERMAN Self - patient is the insured MEDICAID OF [facility] [address] [place] [address] [id number] KELLY ZIMMERMAN Self - patient is the insured Medical (General) History Medical History History ICD Code colonoscopy 08/12, ten-year followup Iron deficiency anemia asthma elevated cholesterol hypertension obstructive sleep apnea fibromyalgia diabetes mellitus EGD 09/28/17, GERD Surgical History Surgery Date(Month/Year) reduction mammoplasty 02/06/2011 left knee replacement
--- NOTE | 2024-12-23 07:58 | A.OFFVIS_ITS ---
Vital Signs 12/23/24 08:06 Height 5 ft 2 in Weight 180 lb 15.992 oz BMI 33.1 BP 100/70 Blood Pressure Location Lt brachial Position Sitting Pulse 85 Pulse Source Pulse Oximeter Pulse Oximetry (%) 97 Oxygen Delivery Method Room Air Intake Visit Reasons: FM/OA/CM Intake Note: Patient presents today for FM/OA. C/O RT knee pain and lots of swelling Mixing Place Supervisor Required: Yes Mixing Place Supervisor Language: Bi Developer Services: Mixing Place Supervisor Present Mixing Place Supervisor Name: Amado [id number] Information Interpreted: non-clinical & clinical Allergies No Known Allergies Allergy (Verified 12/23/24 08:05) Medication List - Last Reconciled 12/23/24 by Tamara Modi MD acetaminophen ER (Tylenol 8 Hour) 650 mg PO Q8H PRN albuterol sulfate 90 mcg/actuation (ProAir HFA) 2 puffs inhalation Q4-6H PRN amlodipine 10 mg PO DAILY ezetimibe (Zetia) 10 mg PO DAILY metformin ER 750 mg PO DAILY olmesartan (Benicar) 40 mg PO DAILY omeprazole 40 mg PO DAILY rosuvastatin (Crestor) 20 mg PO DAILY tramadol 100 mg (2 x 50 mg) PO BID PRN HPI Comments Details: Patient is a 64-year-old female with hypertension, hyperlipidemia, diabetes who presents for follow-up for fibromyalgia and osteoarthritis. Interval History: Patient last seen 07/15/2024 with me. At that time patient was on tramadol 100mg bid. She was overall stable but had complaints of for her left knee (this is status post knee replacement) and bilateral plantar pain. The plantar pain is aggravated by walking. She was given bilateral plantar fasciitis injections Today she states that the injections helped her a little bit moving her pain from a 10/10 to a 7/10. Still has pain with walking on her feet. With intermittent swelling. Has tried to go to the rate engineer previously referred however they do not take her insurance. Today her main complaint is right knee pain and swelling. Rheumatologic History: Patient was 1st seen 02/23/2021. At that time evaluation revealed fibromyalgia and osteoarthritis. Gabapentin - tried in the past but gave her dizziness so she stopped it She was given a trial of prednisone however this did not improve her pain. Current Rheumatology Medication(s): Tramadol 100mg po bid prn PFSH Medical History (Updated 07/15/24 @ 09:47 by Tamara Modi MD) Plantar fasciitis, bilateral Localized swelling of both feet Arthritis Scoliosis Fibromyalgia Low back pain Smoker Carpal tunnel syndrome, bilateral Elevated cholesterol HTN (hypertension) Diabetes Asthma Anxiety PTSD (post-traumatic stress disorder) Bipolar 1 disorder, depressed Anemia GERD (gastroesophageal reflux disease) PONV (postoperative nausea and vomiting) Surgical History History of total left knee replacement Hx of reduction mammoplasty History of bladder surgery H/O tubal ligation Family History Mother HTN (hypertension) High cholesterol Father Stomach cancer Sister Uterus cancer Social History Household Members: Significant Other Housing: Apartment Alcohol intake: current Alcohol intake frequency: holidays/special occasions only Patient Tobacco Use Status: Current someday Tobacco user Tobacco use type: Cigarette Cigarettes Per Day: 1 Years Smoked: 15 Substance Use Type: Marijuana Review of Systems Const Details: Review of Systems Constitutional: Denies fever, chills, weight loss ENT: Denies vision changes, eye pain or eye redness, dental caries, dry mouth GI: Denies nausea, vomiting, diarrhea, abdominal pain, change in BM Pulm: Denies SOB, HEWITT, hemoptysis, wheezing Cards: Denies chest pain, palpitations Skin: Denies Raynaud's, rash, nail changes, photosensitivity, SKIN INSTALLER: Denies headaches, weakness, paresthesias, recurrent falls MSK: as per HPI All other systems reviewed and are unremarkable except noted above Physical Exam Vital Signs: Last Vital Signs Pulse 85 12/23/24 08:06 BP 100/70 12/23/24 08:06 Pulse Ox 97 12/23/24 08:06 Oxygen Delivery Method Room Air 12/23/24 08:06 BMI result Body Mass Index 33.1 Vital signs reviewed Physical Examination CONSTITUITIONAL Patient alert and cooperative. Well appearing and in no apparent painful distress HEENT Conjunctiva and sclera clear. Pupils equal round and reactive to light. No lymphadenopathy. CHEST/RESPIRATORY SYSTEM Normal respiratory effort and able to speak in complete sentences. Clear to auscultation bilaterally. No crackles, rales, rhonchi, wheezes heard. CARDIAC SYSTEM Regular rate and rhythm. S1 and S2 heard no murmurs. Radial pulses intact bilaterally MSK Hands: Good chief controller tower strength bilaterally. No deformities noted. No synovitis noted to the MCPs, PIPs or DIPs. No tenderness to palpation of these joints. Heberden's and Anna's nodes noted Wrists: Full range of motion at the wrists without pain. No tenderness to palpation or synovitis noted to the wrists. Elbows: Full range of motion without pain. No tenderness, weakness, swelling, increased warmth or erythema. Shoulders: Full range of motion without pain. No tenderness, weakness, swelling, increased warmth or erythema. Knees: Full range of motion to bilateral knees however tenderness to palpation of the right knee joint line medially. With mild effusion noted. Left knee full range of motion no tenderness to the joint line. Ankles: Full range of motion. No tenderness, swelling, increased warmth or erythema.? Feet: Negative squeeze test. No tenderness to palpation or swelling of the MTPs. Tenderness to palpation of the plantar surface of bilateral feet Tender points:?No tenderness to palpation of the bilateral trapezius, supraspinatus, greater trochanters, anterior costochondral junctions, bilateral gluteal areas, bilateral suboccipital muscle insertions SKIN Skin intact without rashes. Office Procedures AMB Joint Injection/Aspiration Joint Injection/Aspiration Details: Procedure was explained to the patient and consent was obtained. ? The area of interest was identified and confirmed with patient. ?This was subsequently cleaned with chlorhexidine x3. ? The area was then anesthetized using ethyl chloride spray. 40 mg Kenalog with 1 cc 1% lidocaine was injected without issue. ?Minimal to no bleeding. ?Patient tolerated procedure. Primary Site: right knee Prep: site was prepped using aseptic technique and ethochloride spray was applied Injected: 40 mg of, Kenalog, with 1 mL of and 1% plain lidocaine Approach Used: anterolateral Procedure: The patient tolerated the procedure well Coding 27716 - Large joint Procedure code (CPT) selection complete Office Meds lidocaine (PF) 10 mg/mL (1 %) injection solution Performing Provider: Tamara Modi MD Per[place] [facility] Administered by: Tamara Modi MD on 12/23/24 08:39 Dose Route Admin Location Dispensed Lot Number Expiration Date [facility] Pasteurizing Supervisor 1 mL Infiltration right 2 mL [id number] 12/23/26 39106-975-75 [facility] Kenalog 40 mg/mL suspension for injection Performing Provider: Tamara Modi MD Performing [place] [facility] Administered by: Tamara Modi MD on 12/23/24 08:39 Dose Route Admin Location Dispensed Lot Number Expiration Date [employer] Pasteurizing Supervisor 40 mg intra-articular right knee 1 mL [id number] 03/24/26 [address]-4 [employer] Results Reviewed Results Reviewed: Laboratory Tests 11/14/23 10/01/24 12/02/24 11:35 07:13 09:44 WBC 7.8 RBC 3.96 L Hgb 13.1 Hct 39.3 Plt Count 339 ESR 7 Sodium 143 Potassium 3.9 Chloride 112 H Carbon Dioxide 25 BUN 23 H Creatinine 0.98 AST 19 ALT 21 Alkaline Phosphatase 105 Total Protein 7.3 Assessment & Plan Assessment & Plan (1) Primary osteoarthritis of both knees: Code(s): M17.0 - Bilateral primary osteoarthritis of knee Plan: #Bilateral knee OA Patient with bilateral knee OA status post left knee replacement. Today complaining of bilateral knee pain right worse than left. Told patient that she needs to follow up with her orthopedic surgeon about her left knee pain. Status post steroid injection to right knee today. Plan - Follow up with ortho for left knee pain - Right knee steroid injection - Tramadol 100mg po bid - RTC 6 months (2) Plantar fasciitis, bilateral: Comment: Plantar fascial steroid injection 07/15/24 Code(s): M72.2 - Plantar fascial fibromatosis Category: Medical Plan: #Bilateral Plantar fasciitis Patient with minimal relief to steroid injection. Refer to Podiatry Plan - Refer to podiatry - Patient to contact insurance (3) Fibromyalgia: Code(s): M79.7 - Fibromyalgia Category: Medical Plan: #Fibromyalgia Patient fibromyalgia stable today. Unable to tolerate gabapentin. If symptoms get worse can consider pregabalin in the future maybe. (4) Medication monitoring encounter: Comment: tramadol pain contract updated 09/08/2022 Code(s): Z51.81 - Encounter for therapeutic drug level monitoring Category: Medical Plan: #Tramadol Current Use Reviewed mass pat Tramadol reordered Plan I spent 32 minutes reviewing the record and labs, taking a history, examining the patient, discussing the treatment plan, ordering diagnostic work up and documenting in the medical record Orders: Orders AMB Joint Injection/Aspiration Today M17.0 - Bilateral primary osteoarthritis of knee Referrals Podiatry Referral M72.2 - Plantar fascial fibromatosis Medications: Refilled tramadol 100 mg (2 x 50 mg) PO BID PRN 120 tabs 5RF pain M47.816 - Spondylosis without myelopathy or radiculopathy, lumbar region Coding Level of Care Code Est Pt Level 4 (01757) Complex EM visit Add On G2211 Diagnoses Primary osteoarthritis of both knees M17.0 Plantar fasciitis, bilateral M72.2 Fibromyalgia M79.7 Medication monitoring encounter Z51.81 CPT Codes Coding - 69196 Large joint: 37658 - Large joint ([id number])
[2024-12-23 08:06] VITALS: BP 100/70; PULSE 85; O2SAT 97; BMI 33.1
== END 2024-12-23 08:34 | disposition home or self-care (01) ==
PROVIDERS: PCP Internal Medicine; Visit Provider Student in an Organized Health Care Education/Training Program
DX: M17.0 Bilateral primary osteoarthritis of knee (principal); M72.2 Plantar fascial fibromatosis; M79.7 Fibromyalgia; Z51.81 Encounter for therapeutic drug level monitoring
CPT/HCPCS: 20610; 99214

== ENCOUNTER → 2024-12-23 07:44 | Outpatient (BNVA) | payer OTHER, SELFPAY | PROVIDERS: PCP Internal Medicine; Visit Provider Student in an Organized Health Care Education/Training Program | DX: M17.0 Bilateral primary osteoarthritis of knee (principal); M72.2 Plantar fascial fibromatosis; M47.816 Spondylosis without myelopathy or radiculopathy, lumbar region; Z51.81 Encounter for therapeutic drug level monitoring; Z79.891 Long term (current) use of opiate analgesic; Z79.899 Other long term (current) drug therapy | CPT/HCPCS: 20610; 99212; J3300 ==